=== PATIENT | male | born 1950 | race Caucasian/White ===

== ENCOUNTER 2021-10-27 08:10 | Outpatient (RCR) | payer MEDICARE, SELFPAY | END 2021-11-06 11:08 | disposition home or self-care (01) | LOC: HO.WCC 08:10 | PROVIDERS: PCP Internal Medicine; Visit Provider Physician Assistant | DX: K61.1 Rectal abscess (principal); I10 Essential (primary) hypertension; Z95.2 Presence of prosthetic heart valve; Z95.1 Presence of aortocoronary bypass graft; Z87.891 Personal history of nicotine dependence | CPT/HCPCS: 11106; 87071; 87147; 87205; 99211 ==